=== PATIENT | female | born 1985 | race Caucasian/White ===

== ENCOUNTER 2017-01-16 01:31 | Emergency (ER) | payer OTHER ==
--- NOTE | ~2017-01-16 | CR142 ---
[facility] A Service of [facility] & [facility] RADIOLOGY TEXT RESULTS PATIENT: FRANCESCO LR LOCATION: [facility] : 84 UNIT #: [id number] AGE: [address]: George Black MD SEX: F ORDER DR: [id number] [facility] [address] [place], [place] [address] [id number] E MR#: [id number] Acc #: [id number] NAME: FRANCESCO RL. : 1985 SEX: F STUDY DATE/TIME: 01/16/2017 1:36 UNIT: [facility] ROOM: STUDY DESCRIPTION: CR Hand Min 3 Views Rt Attending Physician: Julian Black M.D. Ordering Physician: Ed Doctor [id number] [facility] Primary Care Physician: Primary Care Physician No MEDICAL IMAGING REPORT This report is preliminary unless electronic signature is present EXAM 3 views of the right hand COMPARISON None INDICATION 31-year-old female with pain and swelling of the right hand localizing to the third metacarpal and metacarpophalangeal joint after punching a glass door tonight. FINDINGS Apparent healed fracture of the fifth metacarpal. Bones are anatomically aligned. No evidence of acute fracture. No radiopaque foreign bodies. IMPRESSION 1. No acute fracture or dislocation. No radiopaque foreign body. 2. Healed fifth metacarpal fracture. Dictated by... Gutierrez Philippe M.D. THIS IS AN ELECTRONICALLY VERIFIED REPORT Gutierrez Philippe M.D. at 01/20/2017 11:07 AM Don TD: 01/16/2017 08:44 JOB #: [id number] MEDICAL IMAGING REPORT COPY
[~2017-01-16 01:31] MED LIST: ALBUTEROL17 GM INH; ANTIVERT PO; ATARAX PO; AUGMENTIN PO; AZITHROMYCIN1 GM PO; BACTRIM DS TABL1 TA1 PO; BACTROBAN22 GM TP; CODEINE 10 MG/118 ML PO; ELIMITE60 GM TOP; FAMOTIDINE PO; FLEXERIL PO; KEFLEX125 MG/5 M PO; KEFLEX500 M1 PO; KETOPROFEN PO; KLONOPIN0.5 MG PO; LORTAB 5/500 TA1 TA1; LORTAB 5/500 TA1 TA1 PO; LOTRISONE CREAM45 GM TOP; MEDROL4 MG/DOSE- PO; MIRALAX17 GM PO; NAPROXEN PO; NEURONTIN PO; NO MEDICATIONS; ORUDIS75 M1 PO; REGLAN10 MG PO; ROBAXIN500 MG PO; SUBOXONE 12 MG1 EACH SL; TUSSI-ORGANIDI118 M1 PO; TUSSIONEX PENN473 ML PO; TYLENOL #3 PO; ULTRAM PO; VIBRAMYCIN100 M1 PO; VICODIN 5/500 T1 TAB PO; VOLTAREN75 MG PO; ZITHROMAX PO; ZOLOFT
== END 2017-01-16 03:39 | disposition home or self-care (01) ==
LOC: CED 01:31
DX: S60.221A Contusion of right hand, initial encounter (principal); W22.8XXA Striking against or struck by other objects, initial encounter; Y92.009 Unspecified place in unspecified non-institutional (private) residence as the place of occurrence of the external cause; K21.9 Gastro-esophageal reflux disease without esophagitis; F17.210 Nicotine dependence, cigarettes, uncomplicated
CPT/HCPCS: 29130; 29280; 73130; 99283

== ENCOUNTER 2017-04-17 22:05 | Emergency (ER) | payer OTHER ==
[2017-04-17] MEDS ORDERED: NO MEDICATIONS (22:19)
== END 2017-04-17 22:47 | disposition home or self-care (01) ==
LOC: SED 22:05
DX: K02.9 Dental caries, unspecified (principal); F17.200 Nicotine dependence, unspecified, uncomplicated; K21.9 Gastro-esophageal reflux disease without esophagitis; F41.9 Anxiety disorder, unspecified; G89.29 Other chronic pain
CPT/HCPCS: 99282

== ENCOUNTER 2017-04-30 13:41 | Emergency (ER) | payer OTHER ==
--- NOTE | ~2017-04-30 | CR243 ---
[facility] A Service of [facility] RADIOLOGY TEXT RESULTS PATIENT: FRANCESCO LR LOCATION: [facility] : 83 UNIT #: [id number] AGE: [address]: Michaela Ramirez SEX: F ORDER DR: [id number] [facility] [address] [place], [place] [address] [id number] E MR#: [id number] Acc #: [id number] NAME: FRANCESCO LR : 1985 SEX: F STUDY DATE/TIME: 04/30/2017 14:42 UNIT: [facility] ROOM: STUDY DESCRIPTION: CR Thoracic Spine 3 Views Attending Physician: Michaela Ramirez P.A.-C. Ordering Physician: Michaela Ramirez P.A.-C. Primary Care Physician: No Primary Care Physician MEDICAL IMAGING REPORT This report is preliminary unless electronic signature is present EXAMINATION Three views of the thoracic spine. DATE 04/30/2017 HISTORY [id number] back pain and right posterior rib pain with shortness of breath for 2 days after falling. COMPARISON None. FINDINGS There is chronic-appearing Schmorl node protrusion at the superior endplate of T12. No acute thoracic vertebral body fracture or subluxation is seen. There is a mild diminished disc space height at T11-12. No acute-appearing thoracic vertebral body fracture or subluxation is seen. IMPRESSION 1. There is a Schmorl node protrusion in the superior endplate of T12 which appears corticated and chronic, and there is mild diminished disc height at T11-12, as well. These findings are new since the lateral chest radiograph of 08/20/2012. 2. There is no evidence of acute thoracic vertebral body fracture or subluxation. Dictated by... Bhavana Baig M.D. THIS IS AN ELECTRONICALLY VERIFIED REPORT Bhavana Baig M.D. at 05/01/2017 6:13 AM [facility] A Service of [facility] RADIOLOGY TEXT RESULTS PATIENT: FRANCESCO LR LOCATION: [facility] : 83 UNIT #: [id number] AGE: [address]: Michaela Ramirez SEX: F ORDER DR: ANIL/roman TD: 04/30/2017 16:07 JOB #: [id number] MEDICAL IMAGING REPORT Page 1 of 1 COPY
--- NOTE | ~2017-04-30 | CR219 ---
[facility] A Service of [facility] & [facility] RADIOLOGY TEXT RESULTS PATIENT: FRANCESCO LR LOCATION: [facility] : 83 UNIT #: [id number] AGE: [address]: Michaela Ramirez SEX: F ORDER DR: [id number] [facility] [address] [place], [place] [address] [id number] E MR#: [id number] Acc #: [id number] NAME: FRANCESCO LR : 1985 SEX: F STUDY DATE/TIME: 04/30/2017 14:43 UNIT: [facility] ROOM: STUDY DESCRIPTION: CR Sacrum and Coccyx Min 2 Vie Attending Physician: Michaela Ramirez P.A.-C. Ordering Physician: Michaela Ramirez P.A.-C. Primary Care Physician: Primary Care Physician No MEDICAL IMAGING REPORT This report is preliminary unless electronic signature is present EXAM 3 views of the sacrum and coccyx, 04/30/2017 HISTORY 31-year-old female with sacrum and coccygeal pain for 2 days after falling. FINDINGS No sacral fracture is seen. The sacral arcuate lines appear intact. No coccygeal segment displacement is evident, either. No sacroiliac joint or pubic symphysis diastasis is seen. Imaged hips appear unremarkable without significant osteoarthritic change. Intrauterine device in place. IMPRESSION Normal three views of the sacrum and coccyx. Dictated by... Bhavana Baig M.D. THIS IS AN ELECTRONICALLY VERIFIED REPORT Bhavana Baig M.D. at 05/01/2017 6:13 AM ANIL/judie TD: 04/30/2017 16:01 JOB #: [id number] MEDICAL IMAGING REPORT Page 1 of 1 COPY
--- NOTE | ~2017-04-30 | CR211 ---
[facility] A Service of [facility] & [facility] RADIOLOGY TEXT RESULTS PATIENT: FRANCESCO LR LOCATION: [facility] : 83 UNIT #: [id number] AGE: [address]: Michaela Ramirez SEX: F ORDER DR: [id number] [facility] [address] [place], [place] [address] [id number] E MR#: [id number] Acc #: [id number] NAME: FRANCESCO LR : 1985 SEX: F STUDY DATE/TIME: 04/30/2017 14:41 UNIT: [facility] ROOM: STUDY DESCRIPTION: CR Ribs Uni 2 View W PA Ch Rt Attending Physician: Michaela Ramirez P.A.-C. Ordering Physician: Michaela Ramirez P.A.-C. Primary Care Physician: Primary Care Physician No MEDICAL IMAGING REPORT This report is preliminary unless electronic signature is present EXAM PA chest with right rib detail series (4 images), 04/30/2017 HISTORY Pain in the [id number]-[id number] back and right posterior rib pain with shortness breath for 2 days after falling. COMPARISON PA and lateral chest, 08/20/2012 FINDINGS No acute airspace disease. Heart size is within normal limits. There is no pleural effusion or pneumothorax. No displaced right rib fracture is seen. IMPRESSION No displaced right rib fracture. No acute chest findings. Dictated by... Bhavana Baig M.D. THIS IS AN ELECTRONICALLY VERIFIED REPORT Bhavana Baig M.D. at 05/01/2017 6:13 AM Marleni TD: 04/30/2017 15:55 JOB #: [id number] MEDICAL IMAGING REPORT Page 1 of 1 COPY
--- NOTE | ~2017-04-30 | CR181 ---
[facility] A Service of [facility] & [facility] RADIOLOGY TEXT RESULTS PATIENT: FRANCESCO LR LOCATION: [facility] : 83 UNIT #: [id number] AGE: [address]: Michaela Ramirez SEX: F ORDER DR: [id number] [facility] [address] [place], [place] [address] [id number] E MR#: [id number] Acc #: [id number] NAME: FRANCESCO LR : 1985 SEX: F STUDY DATE/TIME: 04/30/2017 14:42 UNIT: [facility] ROOM: STUDY DESCRIPTION: CR Lumbar Spine 2 or 3 Views Attending Physician: Michaela Ramirez P.A.-C. Ordering Physician: Michaela Ramirez P.A.-C. Primary Care Physician: Primary Care Physician No MEDICAL IMAGING REPORT This report is preliminary unless electronic signature is present EXAM 3 views lumbar spine, 04/30/2017 HISTORY Low back pain for 2 days after falling. COMPARISON Lumbar spine radiographs, 07/20/2013 FINDINGS No acute lumbar spine fracture is seen. There is minimal 2.0 mm retrolisthesis of L4 upon L5, not thought to be significantly changed, likely due to facet arthropathy at that level. There is mild diminished disc height at L5-S1. Mild diminished disc height at L4-5. IMPRESSION 1. Very mild retrolisthesis L4 upon L5 is unchanged from 2012, most likely due to facet arthropathy at that level. 2. Mild diminished disc height at L4-5 and L5-S1. 3. No acute appearing lumbar spine findings. Dictated by... Bhavana Baig M.D. THIS IS AN ELECTRONICALLY VERIFIED REPORT Bhavana Baig M.D. at 05/01/2017 6:13 AM ANIL/judie TD: 04/30/2017 15:59 JOB #: [id number] MEDICAL IMAGING REPORT Page 1 of 1 COPY
== END 2017-04-30 15:45 | disposition home or self-care (01) ==
LOC: CED 13:41 → CFTX 13:41
DX: M54.14 Radiculopathy, thoracic region (principal); M54.16 Radiculopathy, lumbar region; M54.18 Radiculopathy, sacral and sacrococcygeal region; K21.9 Gastro-esophageal reflux disease without esophagitis; F41.9 Anxiety disorder, unspecified; F17.210 Nicotine dependence, cigarettes, uncomplicated; Z98.51 Tubal ligation status
CPT/HCPCS: 71101; 72072; 72100; 72220; 96372; 99283; J1885